=== PATIENT | male | born 1990 | race Caucasian/White ===

== ENCOUNTER 2018-02-14 20:12 | Emergency (ER) | payer OTHER | END 2018-02-14 23:37 | disposition other institution (70) | LOC: ED 20:12 | DX: Z02.89 Encounter for other administrative examinations (principal) ==

== ENCOUNTER 2018-02-14 20:12 | Emergency (ER) | payer OTHER ==
[2018-02-14 22:18] VITALS: BP 115/67
== END 2018-02-14 23:37 | disposition other institution (70) ==
LOC: ED 20:12
DX: F16.10 Hallucinogen abuse, uncomplicated (principal)
CPT/HCPCS: J2060; J7030